=== PATIENT | male | born 1990 | race Caucasian/White ===

== ENCOUNTER → 2021-12-25 17:10 | Outpatient (CLI) | payer OTHER, SELFPAY ==
--- NOTE | 2021-12-25 17:13 | DI.MRI.S_ITS ---
PROCEDURE: MR LUMBAR SPINE WO CON INDICATIONS: Dorsalgia, unspecified TECHNIQUE: Noncontrast sagittal T1 spin echo and T2 fast echo, sagittal STIR, and T2 fast spin echo through the lumbar spine. In cases with scoliosis, additional coronal T2 fast spin echo may be performed. COMPARISON: [facility], RG, XR L-SPINE 2-3V, 11/19/2021, 9:40. FINDINGS: Image quality: Excellent. Alignment and Curvature: There is normal bony alignment. Bone Marrow: Marrow is of normal overall signal. No acute vertebral body compression fractures. Spinal Cord: Conus medullaris terminates at the L1 level. Visualized cord demonstrates normal signal and size. Paraspinous Soft Tissues: No paravertebral masses. Discs: Moderate to severe desiccation is present L1-2, L2-3, L4-5, [id number] at L3-4, L5-S1. L1-L2: Minimal disc bulge without spinal stenosis or foraminal narrowing. Minimal epidural lipomatosis. L2-L3: Minimal disc bulge without spinal stenosis or foraminal narrowing. Minimal epidural lipomatosis. L3-L4: Minimal disc bulge without spinal stenosis or foraminal narrowing. Minimal epidural lipomatosis is present. L4-L5: Mild disc bulge with mild spinal stenosis. Minimal bilateral foraminal narrowing with facet and ligamentum flavum hypertrophy. Minimal epidural lipomatosis. L5-S1: Minimal disc bulge without spinal stenosis or foraminal narrowing. IMPRESSION: Minimal degenerative changes as above. Dictated by: Wanda Lozada M.D. on 12/26/2021 at 10:24 Approved by: Wanda Lozada M.D. on 12/26/2021 at 10:26
== END ==
DX: M48.061 Spinal stenosis, lumbar region without neurogenic claudication (principal); M51.36 Other intervertebral disc degeneration, lumbar region
CPT/HCPCS: 72148